=== PATIENT | male | born 1950 | race Caucasian/White ===

== ENCOUNTER 2017-04-06 10:30 | Outpatient (RCR) | payer OTHER | END 2017-04-10 | disposition home or self-care (01) | LOC: PTY 10:30 | DX: G20 Parkinson's disease (principal) ==

== ENCOUNTER 2017-04-26 10:15 | Outpatient (RCR) | payer OTHER | END 2017-05-11 | disposition home or self-care (01) | LOC: PTY 10:15 | DX: G20 Parkinson's disease (principal) ==

== ENCOUNTER 2017-05-25 09:20 | Outpatient (RCR) | payer OTHER | END 2017-06-08 | disposition home or self-care (01) | LOC: PTY 09:20 | DX: G20 Parkinson's disease (principal) ==